=== PATIENT | female | born 1965 | race Caucasian/White ===

== ENCOUNTER → 2018-03-26 12:26 | Outpatient (CLI) | payer SELFPAY ==
--- NOTE | 2018-03-26 12:36 | US_ITS ---
STUDY: THYROID ULTRASOUND REASON FOR EXAM: Female, 52 years old. Thyromegaly, abnormal labwork TECHNIQUE: Ultrasound evaluation of the thyroid was performed with real-time and static pavon-scale imaging. COMPARISON: None. FINDINGS: RIGHT LOBE: The right lobe of the thyroid gland measures 4.0 x 1.9 x 1.5 cm. There is a heterogeneous coarse echotexture. There are no demonstrated solid, cystic or complex lesions. Right thyroid lobe vascularity is overall increased. LEFT LOBE: The left lobe of the thyroid gland measures 3.0 x 1.5 x 1.5 cm. There is a heterogeneous coarse echotexture.. There is a 2 mm calcification of the mid pole. The left lower lobe vascularity is overall diffusely increased. Microcalcifications are seen bilaterally. ISTHMUS: The isthmus measures 3 mm . The regional lymph nodes are normal. US/Thyroid IMPRESSION: Left and right thyroid lobes demonstrate a coarse heterogeneous echotexture. Left and right thyroid lobe vascularity is overall increased. There is a 2 mm calcification of the mid pole of the left thyroid lobe. There are several microcalcifications bilaterally. Electronically Signed: Serge Brennan MD at 20:39 EDT , Service support ,
== END ==
PROVIDERS: Family Provider Nurse Practitioner Family; PCP Nurse Practitioner Family; Visit Provider Nurse Practitioner Family
DX: E04.9 Nontoxic goiter, unspecified (principal)
CPT/HCPCS: 76536

== ENCOUNTER 2024-03-09 14:46 | Emergency (ER) | payer MEDICAID, SELFPAY ==
[2024-03-09 14:47] VITALS: BP 177/88; PULSE 107; RESP 20; TEMP 36; O2SAT 95; BMI 22.8
--- NOTE | 2024-03-09 15:10 | EX.ED.DYSGE1 ---
HPI History of Present Illness Chief Complaint: Substance Abuse Informant: patient and spouse/S.O. Narrative Narrative: 58-year-old female presenting to the emergency room with a chief complaint of seeking detox for crack cocaine use. Patient states that she has been smoking crack cocaine for the past 3 to 4 days. Previous to this she was clean for 14 months. She had previously done detox program in [place]. Patient states she does not use any other substances like alcohol fentanyl or other opiates. She does not use benzodiazepines. Patient states that her son which led her into addiction. Patient denies any known medical problems. She last used this morning. [facility] Medical History Cocaine use Home Medications ?Medication ?Instructions ?Recorded ?Last Taken ?Type No Known/Unobtainable [No Known 06/04/13 Unknown History Home Medications] Allergy/AdvReac Type Severity Reaction Status Date / Time No Known Allergies Allergy Verified 03/09/24 14:47 Social History Smoking Status: Current every day smoker ROS [facility] ED Constitutional Constitutional ED: Denies chills, fever(s) or weight loss Eyes Eyes: Denies change in vision or diplopia ENT ENT ED: Denies ear pain, rhinorrhea or sore throat Cardiovascular Cardiovascular: Denies chest pain, orthopnea, palpitations or racing heartbeat Respiratory/Chest Respiratory/Chest: Denies cough, dyspnea or orthopnea Gastrointestinal Gastrointestinal: Denies abdominal pain, diarrhea, nausea or vomiting Genitourinary Genitourinary ED: Denies dysuria, hematuria or urinary frequency Musculoskeletal Musculoskeletal: Denies arthralgias or myalgias Integumentary Denies abscess or rash Neurologic Neurologic: Denies headache(s) or weakness Psychiatric Psychiatric: Reports anxiety, depression and other; Denies suicidal ideation or suicidal thoughts Endocrine Endocrinology: Denies polydipsia, polyphagia or polyuria Allergic/Immunologic Allergic/Immunologic ED: Denies mouth swelling, tongue swelling or urticaria EXAM Physical Exam Const Vital Signs: 03/09/24 14:47 Temperature 96.8 F L Temperature Source Temporal Pulse Rate 107 H Respiratory Rate 20 H Blood Pressure 177/88 H Blood Pressure Mean 117 Pulse Ox 95 Oxygen Delivery Method Room Air Positive well nourished and well developed General Appearance ED: well developed and NAD HEENT Reports normocephalic, head/scalp atraumatic and moist mucous membranes Eyes PERRL and EOMs intact bilaterally Neck no lymphadenopathy, supple and no JVD Resp normal respiratory effort and clear to auscultation bilaterally Cardio regular rate, regular rhythm and no murmurs Rate: tachycardic GI normal to inspection, nondistended, normoactive bowel sounds and non-tender Palpation: soft Back/Spine no CVA tenderness and normal ROM Extremity normal to inspection General Extremety ED: Negative for edema General Extremity: Negative for edema Neuro oriented x3 and CN's II-XII intact bilaterally Sensorium / Orientation: alert Motor Exam: strength 5/5 throughout Psych mental status grossly normal Mood & Affect: depressed, anxious and tearful Skin no rashes or lesions noted and no wounds MDM MDM MDM Narrative Medical decision making narrative: I spoke with nursing price accuracy supervisor who reports that we do not do inpatient crack cocaine patient detox at this facility. I can refer her to [facility] and the patient states she already has that phone number in the truck. Patient has chosen to leave the department prior to discharge. History & Record Review Discussion w/independent historian: Patient and Significant other Discharge Plan Triage Chief Complaint: Substance Abuse ED Provider: [facility] Lion Dx/Rx/DC Orders Clinical Impression: Substance use disorder, Cocaine use Instructions: ED Cocaine And Crack Abuse Prescriptions: No Action No Known Home Medications Primary Care Provider: Marifer Lyons NP Referrals: Marifer Lyons NP, [facility] ASSISTANT MANAGER-C [Primary Care Provider] - As soon as possible [facility] [Non-Staff] - As soon as possible Print Language: Upper Sorbian Disposition Disposition: Home, Self Care
== END 2024-03-09 15:20 | disposition home or self-care (01) ==
PROVIDERS: Emergency Provider Emergency Medicine; PCP Nurse Practitioner Family; Visit Provider Emergency Medicine
DX: F14.90 Cocaine use, unspecified, uncomplicated (principal); F17.200 Nicotine dependence, unspecified, uncomplicated; F41.9 Anxiety disorder, unspecified; F32.9 Major depressive disorder, single episode, unspecified
CPT/HCPCS: 99282